=== PATIENT | male | born 1935 | race Asian ===

== ENCOUNTER → 2019-02-01 | Outpatient (CLI) | payer MEDICARE, MEDICAID | LOC: COL.RAD 08:44 | DX: C61 Malignant neoplasm of prostate (principal); N40.0 Benign prostatic hyperplasia without lower urinary tract symptoms; N26.1 Atrophy of kidney (terminal) | CPT/HCPCS: A9503 ==

== ENCOUNTER → 2019-03-17 | Outpatient (CLI) | payer MEDICARE, MEDICAID ==
[2019-03-17 11:13] LABS: BASO % 0.2 % (0.0-2.0); EOS # 0.3 (0.0-0.7); EOS % 3.2 % (0-4.0); GRAN # 5.7 (1.4-6.5); GRAN % 67.7 % (42.2-75.2); HEMATOCRIT 37.6 % (42.0-52.0); HEMOGLOBIN 12.2 g/dl (13.5-18.0); LYMPH # 1.8 (1.2-3.4); LYMPH % 20.9 % (20.0-51.0); MEAN CELL VOLUME 91 fl (80.0-100.0); MEAN CORPUSCULAR HEMOGLOBIN 29 pg (27.0-31.0); MEAN CORPUSCULAR HGB CONC 32 g/dl (33.0-37.0); MEAN PLATELET VOLUME 9.2 fl (7.4-10.4); MONO # 0.7 (0.1-0.6); MONO % 7.8 % (1.7-9.3); PLATELET COUNT 223 K/mm3 (130-400); RED BLOOD COUNT 4.15 M/mm3 (4.20-5.60)
== END ==
LOC: COL.LAB 10:34
PROVIDERS: Physician Assistant
DX: R19.7 Diarrhea, unspecified (principal); R63.4 Abnormal weight loss; R14.0 Abdominal distension (gaseous)

== ENCOUNTER 2019-05-31 07:45 | Day surgery (SDC) | payer MEDICARE, MEDICAID ==
[2019-05-31] VITALS (14 sets, daily range): BP systolic 132–176; BP diastolic 60–84; PULSE 47–69; TEMP 97.9
[~2019-05-31] VITALS: Ht 160 cm; Wt 64.1 kg
[2019-05-31 08:39] LABS: HEMOGLOBIN 11.6 g/dl (13.5-18.0); MEAN CELL VOLUME 89 fl (80.0-100.0); MEAN CORPUSCULAR HEMOGLOBIN 29 pg (27.0-31.0); MEAN CORPUSCULAR HGB CONC 32 g/dl (33.0-37.0); MEAN PLATELET VOLUME 9.6 fl (7.4-10.4); PLATELET COUNT 236 K/mm3 (130-400); RED BLOOD COUNT 4.03 M/mm3 (4.20-5.60); REDCELL DISTRIBUTION WIDTH-CV 14.9 % (11.5-14.5)
[2019-05-31] MEDS ORDERED: ASPIRIN 81M81 MG/TA2 PO (08:45)
[2019-05-31] MEDS ORDERED: NORVASC 10MG10 MG PO (08:45)
[2019-05-31 08:46] LABS: PROTHROMBIN TIME 11.1 SECONDS (9.7-12.8)
[2019-05-31] MEDS ORDERED: LASIX 40MG TABL40 MG PO (08:46)
[2019-05-31] MEDS ORDERED: B-121000 MCG PO (08:46)
[2019-05-31] MEDS ORDERED: OS-CAL 500 + D1 TAB PO (08:46)
[2019-05-31] MEDS ORDERED: SYNTHROID0.175 MG PO (08:47)
[2019-05-31] MEDS ORDERED: HCTZ12.5TAB PO (08:47)
[2019-05-31] MEDS ORDERED: MAGNESIUM500 MG PO (08:48)
[2019-05-31 08:49] LABS: PARTIAL THROMBOPLASTIN TIME 27.1 SECONDS (26.0-37.0)
[2019-05-31] MEDS ORDERED: LOPRESSOR100 MG PO (08:49)
[2019-05-31] MEDS ORDERED: OMEGA-3 FISH1000 MG PO (08:50)
[2019-05-31] MEDS ORDERED: PRILOSEC 20MG20 MG PO (08:51)
[2019-05-31] MEDS ORDERED: PRAVACHOL 40MG40 MG PO (08:52)
[2019-05-31] MEDS ORDERED: FLOMAX 0.40.4 MG/CAP PO (08:52)
[2019-05-31 09:11] LABS: CREATININE, serum 2.2 (0.66-1.25); POTASSIUM 3.4 mmol/L (3.4-5.0)
--- NOTE | 2019-05-31 09:12 | NUR ---
Pt to procedure ,report to Erin Guerrier.
--- NOTE | 2019-05-31 09:23 | NUR ---
SEE MERGE FOR MEDICATION ADMINISTRATION TIMES AND INTRA/POST PROCEDURE SEDATION ASSESSMENTS. PLAN FOR RIGHT RADIAL ACCESS.
--- NOTE | 2019-05-31 09:58 | NUR ---
Report received from Erin davis.Will await pt's arrival.
[2019-05-31] MEDS ORDERED: LIPITOR 80MG80 MG PO (10:38)
[2019-05-31] MEDS ORDERED: IMDUR 30MG30 MG/TAB PO (10:38)
[2019-05-31] MEDS ORDERED: PEPCID40 MG PO (10:39)
[2019-05-31] MEDS ORDERED: PLAVIX 75MG TAB75 MG PO (10:40)
--- NOTE | 2019-05-31 15:16 | NUR ---
Dr Thakkar in to see pt.Discharge instructions given to pt.pt verbalizes understanding.INT removed,catheter tip intact.
--- NOTE | 2019-05-31 15:30 | NUR ---
Per pt son he is waiting on his to return to pick them both up.Will continue to monitor.
--- NOTE | 2019-05-31 16:04 | NUR ---
Pt escorted out via wheelchair by this nurse.
== END 2019-05-31 16:04 | disposition home or self-care (01) ==
LOC: COL.CAR 07:45
PROVIDERS: Internal Medicine Cardiovascular Disease
DX: I25.10 Atherosclerotic heart disease of native coronary artery without angina pectoris (principal); R94.31 Abnormal electrocardiogram [ECG] [EKG]; I08.1 Rheumatic disorders of both mitral and tricuspid valves; I13.0 Hypertensive heart and chronic kidney disease with heart failure and stage 1 through stage 4 chronic kidney disease, or unspecified chronic kidney disease; I50.9 Heart failure, unspecified; N18.9 Chronic kidney disease, unspecified; E78.2 Mixed hyperlipidemia; E78.00 Pure hypercholesterolemia, unspecified; Z95.5 Presence of coronary angioplasty implant and graft; Z79.82 Long term (current) use of aspirin
CPT/HCPCS: J1644; J2250; J3010; Q9967

== ENCOUNTER 2019-06-16 11:30 | Day surgery (SDC) | payer MEDICARE, MEDICAID ==
[~2019-06-16] VITALS: Ht 160.1 cm; Wt 64.6 kg
[2019-06-16] VITALS (14 sets, daily range): BP systolic 110–179; BP diastolic 58–81; PULSE 49–55; TEMP 97.2–99
[~2019-06-16 11:30] MED LIST: ASPIRIN 81M81 MG/TA2 PO; B-121000 MCG PO; FLOMAX 0.40.4 MG/CAP PO; HCTZ12.5TAB PO; IMDUR 30MG30 MG/TAB PO; LASIX 40MG TABL40 MG PO; LIPITOR 80MG80 MG PO; LOPRESSOR100 MG PO; MAGNESIUM500 MG PO; NORVASC 10MG10 MG PO; OMEGA-3 FISH1000 MG PO; OS-CAL 500 + D1 TAB PO; PEPCID40 MG PO; PLAVIX 75MG TAB75 MG PO; PRAVACHOL 40MG40 MG PO; PRILOSEC 20MG20 MG PO; SYNTHROID0.175 MG PO
[2019-06-16] MEDS ORDERED: PRAVACHOL80 MG PO (12:06)
[2019-06-16 12:26] LABS: HEMOGLOBIN 11.8 g/dl (13.5-18.0); MEAN CELL VOLUME 90 fl (80.0-100.0); MEAN CORPUSCULAR HEMOGLOBIN 29 pg (27.0-31.0); MEAN CORPUSCULAR HGB CONC 32 g/dl (33.0-37.0); MEAN PLATELET VOLUME 9.4 fl (7.4-10.4); PLATELET COUNT 249 K/mm3 (130-400); RED BLOOD COUNT 4.09 M/mm3 (4.20-5.60); REDCELL DISTRIBUTION WIDTH-CV 14.8 % (11.5-14.5)
[2019-06-16 12:27] LABS: HEMATOCRIT 36.8 % (42.0-52.0)
[2019-06-16 12:32] LABS: PROTHROMBIN TIME 11.4 SECONDS (9.7-12.8)
[2019-06-16 12:33] LABS: CALCIUM 8.7 mg/dL (8.4-10.2); CREATININE, serum 2.3 (0.66-1.25); POTASSIUM 3.6 mmol/L (3.4-5.0)
[2019-06-16 12:34] LABS: PARTIAL THROMBOPLASTIN TIME 28.6 SECONDS (26.0-37.0)
--- NOTE | 2019-06-16 14:00 | NUR ---
Report from Erin Navarro.
--- NOTE | 2019-06-16 14:09 | NUR ---
Pt to procedure at this time.
--- NOTE | 2019-06-16 14:38 | NUR ---
SEE MERGE DOCUMENTATION FOR MEDICATION ADMINISTRATION TIMES AND INTRA/POST PROCEDURE SEDATION ASSESSMENTS.
--- NOTE | 2019-06-16 15:26 | NUR ---
Report received pt to transfer to ICU.
--- NOTE | 2019-06-16 18:00 | NUR ---
band loosed by 5mls at this time. did have noted bleeding to area. this nurse inflated band back with the 5mls and will reattempt to deflate at a later hour
--- NOTE | 2019-06-16 18:45 | NUR ---
loosened band 5mls at this time. no noted bleeding to site left band at 7 and reported to shift superintendent caustic cresylate nurse. varrified location of puncture site with her and current status and apperance of site
--- NOTE | 2019-06-16 20:00 | NUR ---
PT IN BED WITH SON AT BEDSIDE. 5ML OF AIR TAKEN OUT AT 1930. 5ML TAKEN OUT AT 1999. SON TRANSLATING, PT DOES NOT SPEAK ENGLIGH. THROUGH TRANSLATION PT DENIED PAIN, PT ALERT AND ORIENTED. PT PLEASANT, FRESH WATER BROUGHT TO ROOM ALONG WITH NONSKID SOCKS. TABLE AT BEDSIDE, BED IN LOWEST POSITION. NO OTHER NEEDS AT THIS TIME. AT 2019 2ML TAKEN OUT, BAND DEFLATED BUT STILL ON AT THIS TIME.
--- NOTE | 2019-06-16 23:36 | NUR ---
TR BAND REMOVED FROM WRIST, SLIGHT BRUISING AT SITE, NO ACTIVE BLEEDING, BAND AID PLACED OVER SITE. TR BAND PLACED WITH SYRINGE AT CLOSE DISTANCE IN ROOM IF NEEDED.
[2019-06-17 03:52] VITALS: BP 144/76; PULSE 50; TEMP 98.7
--- NOTE | 2019-06-17 05:17 | NUR ---
PT IN BED SLEEPING. DENIES PAIN OR DISCOMFORT, UNEVENTFUL SHIFT, RWRIST SHOWS SLIGHT BRUISING BUT NO ACTIVE BLEEDING. SON REPORTED TO RETURN AT 0800. NO OTHER NEEDS AT THIS TIME.
[2019-06-17 08:29] VITALS: BP 155/87; PULSE 50; TEMP 98.1
[2019-06-17 12:04] VITALS: BP 160/76; PULSE 57; TEMP 97.9
[2019-06-17] MEDS ORDERED: BYSTOLIC10 MG PO (13:16)
--- NOTE | 2019-06-17 14:00 | NUR ---
pt had uneventful morning took meds well this am. son at bedside for translation. discussed with pt and his son all discharge information. all questions answered. IV and tele removed without issues. radial site has remained CDI with a bandaid in place.
== END 2019-06-17 14:00 | disposition home or self-care (01) ==
LOC: MEDICAL 11:30 → COL.CAR 11:30 → MEDICAL 15:54 → COL.CAR 06-17 14:00
PROVIDERS: Internal Medicine Cardiovascular Disease
DX: I25.110 Atherosclerotic heart disease of native coronary artery with unstable angina pectoris (principal); I10 Essential (primary) hypertension; E78.00 Pure hypercholesterolemia, unspecified; E78.2 Mixed hyperlipidemia; I15.0 Renovascular hypertension; N28.9 Disorder of kidney and ureter, unspecified; Z95.5 Presence of coronary angioplasty implant and graft; Z79.82 Long term (current) use of aspirin
CPT/HCPCS: OP; C9600; J1644; J2250; J3010